=== PATIENT | male | born 1960 | race Hispanic/Latino ===

== ENCOUNTER 2020-11-04 08:27 | Day surgery (SDC) | payer BC ==
[2020-10-30 10:57] LABS: Basophils % (Auto) 0.6 % (0.0-1.8); Eosinophils # (Auto) 0.1 K/mm3 (0.0-0.4); Eosinophils % (Auto) 1.5 % (0.0-4.3); Hematocrit 43.1 % (35.5-45.6); Hemoglobin 15.3 gm/dl (11.8-15.2); Lymphocytes # (Auto) 1.6 K/mm3 (1.2-5.4); Lymphocytes % (Auto) 26.5 % (13.4-35.0); Mean Corpuscular HGB Conc 35 % (32-34); Mean Corpuscular Volume 105 fl (84-94); Monocytes # (Auto) 0.6 K/mm3 (0.0-0.8); Monocytes % (Auto) 10.2 % (0.0-7.3); Platelet Count 217 K/mm3 (140-440); Red Blood Count 4.12 M/mm3 (3.65-5.03); Red Cell Distribution Width 12.5 % (13.2-15.2)
[2020-10-30 11:13] LABS: Blood Urea Nitrogen 11 mg/dL (9-20); Calcium 9.1 mg/dL (8.4-10.2); Hemolysis Index 3
[2020-10-30 11:20] LABS: BUN/Creatinine Ratio 16
--- NOTE | 2020-10-30 11:24 | Anesthesia Consultation ---
Anesthesia Consult and Med Hx Date of service: 11/04/20 - Airway Anesthetic Teeth Evaluation: Good ROM Head & Neck: Adequate Mental/Hyoid Distance: Adequate Mallampati Class: Class II Intubation Access Assessment: Probably Good - Pulmonary Exam CTA: Yes - Cardiac Exam Cardiac Exam: RRR - Pre-Operative Health Status ASA Pre-Surgery Classification: ASA3 Proposed Anesthetic Plan: General - Pulmonary Hx Smoking: Yes (quit 11yrs ago) Hx Respiratory Symptoms: No - Cardiovascular System Hx Hypertension: No Hx Heart Attack/AMI: Yes (2012) Hx Percutaneous Transluminal Coronary Angioplasty (PTCA): Yes (x2 2012) Hx Cardia Arrhythmia: No Hx Peripheral Vascular Disease: Yes (b/l iliac stents; off ASA/plavix 10/24/20) - Central Nervous System CVA: No - Gastrointestinal Hx Gastroesophageal Reflux Disease: Yes - Endocrine Hx Renal Disease: No Hx Liver Disease: Yes Hx Insulin Dependent Diabetes: No Hx Non-Insulin Dependent Diabetes: No Hx Thyroid Disease: No - Other Systems Hx Substance Use: Yes (occasional THC) Hx Obesity: No - Additional Comments Anesthesia Medical History Comments: PMH hemachromatosis complicated by elevated liver enzymes (no hx cirrhosis per patient) followed by hematology. Does regular phlebotomy. Was evaluated by [facility] last year for ARAMBULA and had normal ST and TTE at that time. He states symptoms have since resolved.
[~2020-11-04 08:27] MED LIST: MIDAZOLAM 2 MG/2 ML INJ IV NR; SODIUM CHLORIDE 0.9% 1000 ML 1,000 ML IV SCH
--- NOTE | 2020-11-04 09:20 | Anesthesia Day of Surgery ---
Anesthesia Day of Surgery - Day of Surgery Patient Examined: Yes Patient H&P Reviewed: Yes Patient is NPO: Yes
[2020-11-04] MEDS ORDERED: HYDROmorphone 1 MG/1 ML INJ IV PRN (09:21)
[2020-11-04] MEDS ORDERED: ONDANSETRON 4 MG/2 ML INJ IV PRN (09:21)
[2020-11-04] MEDS ORDERED: ceFAZolin/STERILE WATER 2 GM/20 ML SYRINGE IV NR (10:15)
[2020-11-04] MEDS ORDERED: LIDOCAINE MPF (2%) 20 MG/1 ML VIAL 5 ML ONE (11:21)
[2020-11-04] MEDS ORDERED: propofoL 200 MG/20 ML VIAL IV ONE (11:22)
[2020-11-04] MEDS ORDERED: fentaNYL 100 MCG/2 ML INJ ONE (11:22)
[2020-11-04] MEDS ORDERED: WATER FOR IRRIG STERILE 1,500 ML BOTTLE IR ONE (11:52)
[2020-11-04] MEDS ORDERED: WATER FOR IRRIG STERILE 2000 ML IR ONE ×2 (11:52)
[2020-11-04] MEDS ORDERED: ONDANSETRON 4 MG/2 ML INJ ONE (12:29)
--- NOTE | 2020-11-04 12:38 | Short Stay Summary ---
Short Stay Documentation Date of service: 11/04/20 - History H&P: obtained from office - Allergies and Medications Current Medications: Allergies Sulfa (Sulfonamide Antibiotics) Allergy (Verified 10/28/20 15:49) Unknown ciprofloxacin [From Cipro] Adverse Reaction (Verified 11/04/20 10:14) Unknown PT STATES HE WAS IN HOSPITAL - GIVEN DOSE OF CIPRO AND "WENT CRAZY" Home Medications Medication Instructions Recorded Confirmed Last Taken Type Aspirin [Adult Aspirin] 81 mg PO DAILY 10/28/20 10/28/20 10 Days Ago History ~10/25/20 Clopidogrel [Plavix] 75 mg PO QDAY 10/28/20 10/28/20 10 Days Ago History ~10/25/20 Active Medications Cefazolin Sodium (Cefazolin/Sterile Water 2 Gm/20 Ml Syringe) 2 gm IV PREOP NR Stop: 11/04/20 13:00 Hydromorphone HCl (Hydromorphone 1 Mg/1 Ml Inj) 0.25 mg IV Q10MIN PRN PRN Reason: Pain, Moderate (4-6) Stop: 11/04/20 23:00 Hydromorphone HCl (Hydromorphone 1 Mg/1 Ml Inj) 0.5 mg IV Q10MIN PRN PRN Reason: Pain , Severe (7-10) Stop: 11/04/20 23:00 Sodium Chloride (Nacl 0.9% 1000 Ml) 1,000 mls @ 100 mls/hr IV DIRECT SILAS Stop: 11/04/20 23:59 Last Admin: 11/04/20 10:00 Dose: 100 mls/hr Documented by: Midazolam HCl (Midazolam 2 Mg/2 Ml Inj) 2 mg IV PREOP NR Stop: 11/04/20 23:00 Last Admin: 11/04/20 10:02 Dose: 2 mg Documented by: Ondansetron HCl (Ondansetron 4 Mg/2 Ml Inj) 4 mg IV ONCE PRN PRN Reason: Nausea And Vomiting Stop: 11/04/20 20:00 - Brief post op/procedure progress note Date of procedure: 11/04/20 Pre-op diagnosis: rt distal stone Post-op diagnosis: same Procedure: cysto, left rpg, rt ureteroscopy, stent with external string Anesthesia: LISBETHA Surgeon: FRENCH POMPA Condition: stable - Hospital course Hospital course: macrobidmarceloco, post op info on chart - Disposition Condition at discharge: Stable Disposition: DC-01 TO HOME OR SELFCARE Short Stay Discharge Plan Follow up with: ZONIA ZARAGOZA MD [Primary Care Provider] - 7 Days
[2020-11-04] MEDS: HYDROmorphone 1 MG/1 ML INJ IV PRN ×2 (12:48→12:58)
[2020-11-04] MEDS ORDERED: HYDROcodone/ACETAMINOPHEN 5-325 MG TAB PO PRN (13:25)
--- NOTE | 2020-11-04 14:05 | Operative Report ---
DATE OF SURGERY: 11/04/2020 PREOPERATIVE DIAGNOSIS: Right distal ureteral stone. POSTOPERATIVE DIAGNOSIS: Right distal ureteral stone. PROCEDURES PERFORMED: Cystoscopy, left retrograde pyelogram, right ureteroscopy, basket stone extraction, double-J stent. SURGEON: Dr. Myers. ANESTHESIA: General. ESTIMATED BLOOD LOSS: Minimal. FLUIDS: Crystalloid. COMPLICATIONS: No complications. INDICATIONS: This patient is a 59-year-old gentleman who was seen in the office for right flank pain. CT of abdomen and pelvis revealed a 6 mm distal stone. We discussed options, he agreed to proceed with surgical intervention. Cardiac clearance by Dr. Tino Henderson. DESCRIPTION OF PROCEDURE: The patient was taken to the operative suite, placed in a supine position. After adequate general anesthesia, he was placed in the dorsal lithotomy position, prepped and draped in a sterile fashion. Pancystourethroscopy was performed with a 22-Bolivian Storz cystoscope. No urethral abnormalities. His prostate displayed some mild trilobar obstruction. Bladder, no tumors could be appreciated. He had significant edema around the right ureteral orifice as well as some trabeculation. A left retrograde pyelogram was obtained with an 8-Bolivian Maxwell catheter and 8 mL of contrast. No filling defects or obstruction. On the right side, again significant edema around the periureteral area. We could not shoot a retrograde; however, I used a wire and after probing multiple areas I was able to get the wire up the ureter. A second wire was placed. Ureteroscopy was then performed. The stone was in the distal aspect and actually could be manipulated out with the scope. The rigid ureteroscopy up to the renal pelvis. No other abnormalities could be appreciated. The scope was removed. A 6-Bolivian 26 cm double-J stent with an external string was left indwelling. Rectal exam was benign. His bladder was drained. He was extubated and taken to recovery room in stable condition. He will go home on [employer] and [place]. We will give him his stone for analysis. TID: [id number] RECEIPT: [id number] [facility]MELISA
[2020-11-04 14:25] VITALS: BP 153/83
--- NOTE | 2020-11-04 15:12 | Post Anesthesia Evaluation ---
- Post Anesthesia Evaluation Patient Participated: Yes Airway Patent: Yes Stable Respiratory Function: Yes Nausea/Vomiting: No Temp > 96.8F: Yes Pain Manageable: Yes Adequeate Hydration: Yes Anesthesia Complications: No Block Receding Appropriately: Not Applicable Patient on Ventilator: No
--- NOTE | 2020-11-04 15:56 | Fluoroscopy Report ---
FLUOROSCOPY RETROGRADE UROGRAPHY HISTORY: FINDINGS: 27 seconds of fluoroscopy time was provided by radiology during retrograde urography by the urologist. 7 fluoroscopic images are presented demonstrating right ureteroscopy, stone extraction an d right ureteral stent placement. The left retrograde pyelogram is unremarkable. Please correlate wit h the procedural report as needed. Signer Name: Candelario Fraser Jr, MD Signed: 11/04/2020 3:51 PM Workstation Name: [id number]
== END 2020-11-04 14:15 | disposition home or self-care (01) ==
LOC: OR 08:27
PROVIDERS: ATTEND Urology
DX: N20.1 Calculus of ureter (principal); Z20.822 Contact with and (suspected) exposure to COVID-19; I73.9 Peripheral vascular disease, unspecified; E78.00 Pure hypercholesterolemia, unspecified; K21.9 Gastro-esophageal reflux disease without esophagitis; Z88.8 Allergy status to other drugs, medicaments and biological substances; Z95.5 Presence of coronary angioplasty implant and graft; Z88.2 Allergy status to sulfonamides; Z87.891 Personal history of nicotine dependence; Z90.49 Acquired absence of other specified parts of digestive tract; Z72.89 Other problems related to lifestyle; Z98.890 Other specified postprocedural states
CPT/HCPCS: 36415; 52332; 52352; 74420; 80048; 85025; A4217; C1758; C1769; C2617; J0690; J1170; J2250; J2405; J2704; J3010; J7030; Q9967; U0003